=== PATIENT | female | born 1985 | race Caucasian/White ===

== ENCOUNTER 2018-03-19 02:46 | Emergency (ER) | payer SELFPAY ==
[2018-03-19 02:54] VITALS: BP 103/71
--- NOTE | 2018-03-19 03:20 | EDPHY ---
H & P Stated Complaint: L ankle pain Time Seen by Provider: 03/19/18 03:05 HPI/ROS: Chief Complaint: Left ankle pain HPI: 32-year-old woman found outside, intoxicated. Patient does not recall events from earlier tonight. She is complaining of left ankle pain. Is not sure she fall. She has been ambulating for EMS. Is currently without any other complaints. ROS: 10 point Review of Systems is negative except as noted in the HPI. PMH: Denies Social History: No smoking, positive alcohol Family History: non-contributory Physical Exam: Gen: Awake, Alert, No Distress HEENT: Nose: no rhinorrhea Eyes: PERRLA, EOMI Mouth: Moist mucosa Neck: Supple, no JVD Chest: nontender, lungs clear to auscultation Heart: S1, S2 normal, no murmur Abd: Soft, non-tender, no guarding Back: no CVA tenderness, no midline tenderness Ext: no edema, mild lateral malleolar tenderness, no deformity, no swelling. Decreased range of motion secondary to pain. 2+ dorsalis pedis pulses. Capillary refills less than 2 sec. Sensations intact in all dermatomes. Skin: no rash Neuro: CN II-XII intact, Sensation grossly intact, Strength 5/5 in bilateral upper and lower extremities - Personal History LMP (Females 10-55): 1-7 Days Ago Current Tetanus/Diphtheria Vaccine: Yes Current Tetanus Diphtheria and Acellular Pertussis (TDAP): Yes - Medical/Surgical History Hx Asthma: Yes Hx Chronic Respiratory Disease: No Hx Diabetes: No Hx Cardiac Disease: No Hx Renal Disease: No Hx Cirrhosis: No Hx Alcoholism: No Hx HIV/AIDS: No Hx Splenectomy or Spleen Trauma: No Other PMH: depression - Social History Smoking Status: Heavy smoker Constitutional: Initial Vital Signs Temperature (C) 36.8 C 03/19/18 02:53 Heart Rate 64 03/19/18 02:53 Respiratory Rate 16 03/19/18 02:53 Blood Pressure 103/71 03/19/18 02:53 O2 Sat (%) 96 03/19/18 02:53 O2 Delivery Mode Room Air Allergies/Adverse Reactions: No Known Allergies Allergy (Unverified 03/19/18 02:53) Home Medications: Medication Instructions Recorded No Home Meds 01/10/14 Medical Decision Making - Diagnostics Imaging Results: Ankle x-ray is negative per my interpretation Departure - Departure Disposition: Home, Routine, Self-Care Clinical Impression: Ankle sprain, Alcohol intoxication Condition: Good Instructions: Ankle Sprain (ED), Alcohol Intoxication (ED) Additional Instructions: Follow up with primary care physician in 3-4 days if symptoms are not improving. Referrals: Patient,NotPresent [Unknown] - As per Instructions
== END 2018-03-19 04:25 | disposition home or self-care (01) ==
LOC: EDUNIT#
DX: S93.402A Sprain of unspecified ligament of left ankle, initial encounter (principal); J45.909 Unspecified asthma, uncomplicated; F17.200 Nicotine dependence, unspecified, uncomplicated; F10.129 Alcohol abuse with intoxication, unspecified; X58.XXXA Exposure to other specified factors, initial encounter; Y92.89 Other specified places as the place of occurrence of the external cause; Y99.8 Other external cause status; Y93.89 Activity, other specified

== ENCOUNTER 2018-08-07 09:19 | Emergency (ER) | payer MEDICAID, OTHER ==
--- NOTE | 2018-08-07 09:32 | EDPHY ---
H & P Stated Complaint: Left foot injury in January, pain getting worse. Time Seen by Provider: 08/07/18 09:31 HPI/ROS: HPI: This is a 33-year-old female who presents with Chief Complaint: Left foot injury in January, pain getting worse. Location: Left foot Quality: Injury Duration: In January Signs and Symptoms: No bleeding, no radiation, no numbness, no weakness, no tingling, no incontinence, no decreased range of motion, + swelling, + pain, no fever Timing: Acute, waxes and wane Severity: Moderate Context: Patient is a transient, reports that in February she twisted her left ankle. Since that time she walks long distances the top of her foot has pain and increased swelling. She has new sneakers that she believes is contributing to the discomfort and pain. She reports that she walked from [facility] to [facility] and her top of her foot"swelled up." She denies any recent injuries. Modifying Factors: She has not taking any [id number] pain medications Comment: ROS: A comprehensive 10 system review of systems is otherwise negative aside from elements mentioned in the history of present illness. MEDICAL/SURGICAL/SOCIAL HISTORY: Medical history: Major depression. Surgical history: Denies Social history: Heavy smoker. Transient. CONSTITUTIONAL: Polite and cooperative, adult white female, awake and alert, no obvious distress HEENT: Atraumatic and normocephalic. NECK: supple EXTREMITIES: 2/2 pulses, strength 5/5, left Ankle: Plantar flexion to 50, dorsiflexion to 20. Foot inversion to 35 degree. No tenderness/swelling Anterior talofibular ligament. No tenderness/swelling Calcaneofibular ligament , no tenderness/swelling posterior talofibular ligament, no tenderness/swelling posterior inferior tibiofibular ligament. Achilles tendon intact. Tenderness on the top of the foot but no obvious deformity, ecchymosis, swelling. DIP/PIP/ MCP flexion/extension intact with good light touch sensation. no deformities, no clubbing, no cyanosis or edema. NEUROLOGICAL: no focal neuro deficits. GCS 15. Light touch sensation intact. SKIN: Warm and dry, no erythema. no rash. Good capillary refill. Source: Patient Exam Limitations: No limitations - Personal History Current Tetanus Diphtheria and Acellular Pertussis (TDAP): Yes - Medical/Surgical History Hx Asthma: Yes Hx Chronic Respiratory Disease: No Hx Diabetes: No Hx Cardiac Disease: No Hx Renal Disease: No Hx Cirrhosis: No Hx Alcoholism: No Hx HIV/AIDS: No Hx Splenectomy or Spleen Trauma: No Other PMH: depression - Social History Smoking Status: Heavy smoker Constitutional: Initial Vital Signs Temperature (C) 36.4 C 08/07/18 09:24 Heart Rate 69 08/07/18 09:24 Respiratory Rate 16 08/07/18 09:24 Blood Pressure 115/80 08/07/18 09:24 O2 Sat (%) 96 08/07/18 09:24 O2 Delivery Mode Room Air Allergies/Adverse Reactions: No Known Allergies Allergy (Unverified 03/19/18 02:53) Home Medications: Medication Instructions Recorded No Home Meds 01/10/14 Medical Decision Making - Diagnostics Imaging Results: Imaging Impressions Foot X-Ray 08/07/18 09:35 Impression: No acute osseous findings. Procedures: Procedure: Splint placement. A left walking boot was applied. After application of the splint I returned and re-examined the patient. The splint was adequately immobilizing the joint and distal to the splint the patient's circulation and sensation was intact. ED Course/Re-evaluation: Vital signs reviewed and stable upon arrival. Left foot x-ray ordered. Suspect tendonitis and overuse injury with ill-fitting shoes. No signs of neurovascular compromise/tenting of skin/compartment syndrome/ extremities and joints examined above and below area of concern and are neurovascularly intact. This patient was seen under the supervision of my secondary supervising physician. I evaluated care for this patient independently. Discussed this patient with Dr. Edwards who did not see the patient. Differential Diagnosis: Ankle injury differential diagnosis includes but is not limited to tibia fracture, fibula fracture, metatarsal fracture, LisFranc fracture, achilles tendon rupture, sprain. Departure - Departure Disposition: Home, Routine, Self-Care Clinical Impression: Tendinitis of left foot Condition: Good Instructions: Tendinitis (ED) Additional Instructions: Wear the walking boot while out of bed until pain free. Take Tylenol 650 mg every 4 hours and/or Ibuprofen 600 mg every 8 hours with food as needed for pain. Apply ice for 30 minutes at a time; 2-3 times per day for the next 1-2 days. Follow up with Orthopedics in 7-10 days if symptoms persist at which time they will evaluate and recommend with you if conservative management versus further imaging is indicated. The x-rays obtained in the emergency department today demonstrate no evidence of an obvious fracture. Sometimes fractures are not obvious on the initial set of x-rays performed in the ED. For this reason, you should have repeat x-rays performed in 7-10 days if you are having any pain exclude the possibility of an occult fracture. Referrals: Saad Colbert MD [Medical Doctor] - As per Instructions
[2018-08-07 10:36] VITALS: BP 132/84
== END 2018-08-07 10:26 | disposition home or self-care (01) ==
DX: M77.9 Enthesopathy, unspecified (principal)
CPT/HCPCS: L4386

== ENCOUNTER 2018-10-11 10:48 | Emergency (ER) | payer MEDICAID ==
[2018-10-11] MEDS ORDERED: NS 1,000 ML IV ONE (11:14)
[2018-10-11] MEDS ORDERED: PROMETHAZINE HCL 25 MG/ML INJ IVP ONE (11:14)
--- NOTE | 2018-10-11 11:16 | EDPHY ---
H & P Time Seen by Provider: 10/11/18 11:09 HPI/ROS: Chief complaint. Vomiting HPI. Patient 33-year-old female who has had vomiting in the morning the last 2 weeks. Some nausea in the evening. No diarrhea. She Mr. Last menstrual. 2 weeks ago. She thinks she is possibly . Occasionally some upper abdominal cramping. No vaginal bleeding or spotting. No chest pain or shortness of breath. No fever. No urinary symptoms ROS 10 systems were reviewed and negative with the exception of the elements mentioned in the history of present illness Past Medical/Surgical History: Depression Social History: Single, daily smoker, no alcohol Smoking Status: Heavy smoker Physical Exam: General Appearance: Alert pleasant well-developed female mild distress vital signs are stable Eyes: Pupils equal and round no pallor or injection. ENT, Mouth: Mucous membranes are moist. Respiratory: There are no retractions, lungs are clear to auscultation. Cardiovascular: Regular rate and rhythm. Gastrointestinal: Abdomen is soft and nontender, no masses, bowel sounds normal. Neurological: Awake and alert, sensory and motor exams grossly normal. Skin: Warm and dry, no rashes. Musculoskeletal: Neck is supple nontender. Extremities symmetrical, full range of motion. Psychiatric: Patient is oriented X 3, there is no agitation. Constitutional: Initial Vital Signs Temperature (C) 36.6 C 10/11/18 10:51 Heart Rate 84 10/11/18 10:51 Respiratory Rate 16 10/11/18 10:51 Blood Pressure 115/68 10/11/18 10:51 O2 Sat (%) 96 10/11/18 10:51 O2 Delivery Mode Room Air Allergies/Adverse Reactions: No Known Allergies Allergy (Verified 10/11/18 10:51) Home Medications: Medication Instructions Recorded Doxylamine Succinate/Vit B6 1 each PO DAILY #14 tablet. 10/11/18 [Riya Vasquez 10-10 mg Tablet] Medical Decision Making Procedures: IV normal saline ED Course/Re-evaluation: Re-evaluation patient is stable. She and I discussed laboratory evaluation including positive test. We discussed treatment plan including criteria for return importance of follow-up and further evaluation. She expresses understanding and agreement Differential Diagnosis: I considered , gastroenteritis - Data Points Laboratory Results: Laboratory Results 10/11/18 11:30 10/11/18 11:30 10/11/18 10/11/1810/11/19 11:30 11:30 11:30 WBC 8.34 10^3/uL 10^3/uL (3.80-9.50) RBC 3.94 10^6/uL L 10^6/uL (4.18-5.33) Hgb 12.6 g/dL g/dL (12.6-16.3) Hct 37.6 % L % (38.0-47.0) MCV 95.4 fL fL (81.5-99.8) MCH 32.0 pg pg (27.9-34.1) MCHC 33.5 g/dL g/dL (32.4-36.7) RDW 13.0 % % (11.5-15.2) Plt Count 215 10^3/uL 10^3/uL (150-400) MPV 9.4 fL fL (8.7-11.7) Neut % (Auto) 64.5 % % (39.3-74.2) Lymph % (Auto) 27.3 % % (15.0-45.0) Lamar % (Auto) 4.7 % % (4.5-13.0) Eos % (Auto) 2.3 % % (0.6-7.6) Baso % (Auto) 0.8 % % (0.3-1.7) Nucleat RBC Rel Count 0.0 % % (0.0-0.2) Absolute Neuts (auto) 5.38 10^3/uL 10^3/uL (1.70-6.50) Absolute Lymphs (auto) 2.28 10^3/uL 10^3/uL (1.00-3.00) Absolute Monos (auto) 0.39 10^3/uL 10^3/uL (0.30-0.80) Absolute Eos (auto) 0.19 10^3/uL 10^3/uL (0.03-0.40) Absolute Basos (auto) 0.07 10^3/uL 10^3/uL (0.02-0.10) Absolute Nucleated RBC 0.00 10^3/uL 10^3/uL (0-0.01) Immature Gran % 0.4 % % (0.0-1.1) Immature Gran # 0.03 10^3/uL 10^3/uL (0.00-0.10) Sodium 133 mEq/L L mEq/L (135-145) Potassium 4.0 mEq/L mEq/L (3.5-5.2) Chloride 106 mEq/L mEq/L (97-110) Carbon Dioxide 20 mEq/l L mEq/l (22-31) Anion Gap 7 mEq/L mEq/L (6-14) BUN 13 mg/dL mg/dL (7-23) Creatinine 0.6 mg/dL mg/dL (0.6-1.0) Estimated GFR > 60 Glucose 88 mg/dL mg/dL (70-100) Calcium 9.1 mg/dL mg/dL (8.5-10.4) Lipase 54 IU/L IU/L (23-300) Beta HCG, Qual POSITIVE Medications Given: Discontinued Medications Sodium Chloride (Ns) 1,000 mls @ 0 mls/hr IV EDNOW ONE; Wide Open PRN Reason: Protocol Stop: 10/11/18 11:15 Last Admin: 10/11/18 11:29 Dose: 1,000 mls Ondansetron HCl (Zofran) 4 mg IVP EDNOW ONE Stop: 10/11/18 12:55 Last Admin: 10/11/18 12:57 Dose: 4 mg Promethazine HCl (Phenergan) 12.5 mg IVP EDNOW ONE Stop: 10/11/18 11:15 Last Admin: 10/11/18 11:30 Dose: Not Given Departure - Departure Disposition: Home, Routine, Self-Care Clinical Impression: First trimester Condition: Good Instructions: Hyperemesis Gravidarum (ED) Additional Instructions: Frequent, small sips fluids with nauseated doxylamine to help with nausea Return for worsening symptoms Follow-up with OBGYN Referrals: NONE *PRIMARY CARE P,. [Primary Care Provider] - As per Instructions Rachna Alejandre MD [Medical Doctor] - 5-7 days, call for appt. Prescriptions: Doxylamine Succinate/Vit B6 [Riay Vasquez 10-10 mg Tablet] 1 each PO DAILY #14 tablet.
[2018-10-11 12:15] LABS: PLATELET COUNT 215 10^3/uL (150-400)
[2018-10-11] MEDS ORDERED: ONDANSETRON 4 MG/2 ML VIAL IVP ONE (12:54)
[2018-10-11 13:05] VITALS: BP 118/76
== END 2018-10-11 13:08 | disposition home or self-care (01) ==
DX: O21.9 Vomiting of pregnancy, unspecified (principal); O99.280 Endocrine, nutritional and metabolic diseases complicating pregnancy, unspecified trimester; E86.9 Volume depletion, unspecified; Z3A.00 Weeks of gestation of pregnancy not specified
CPT/HCPCS: 96374; J2405; J2550